=== PATIENT | male | born 1975 | race Caucasian/White ===

== ENCOUNTER → 2017-08-30 | Day surgery (SDC) | payer OTHER ==
--- NOTE | 2017-08-30 14:57 | RADIOLOGY REPORT (SQ) ---
EXAM DESCRIPTION: U/S BIOPSY THYROID COMPLETED DATE/TIME: 08/30/2017 2:07 pm REASON FOR STUDY: THYROID NODULE COMPARISON: None. TECHNIQUE: The procedure was discussed with the patient and written informed consent obtained. A ti meout was performed to confirm the procedure and patient's identity. The skin of the neck was preppe d and draped in sterile fashion and 1.5 mL of 1% lidocaine administered for local anesthesia. Under sonographic guidance, fine needle aspiration biopsy was performed of 4 x 2 cm mass in the lower righ t lobe of the thyroid. Four separate aspirations were performed. Hemostasis was obtained with direct manual compression. T here were no immediate complications. Specimens were evaluated at the time of acquisition by Maria Del Carmen from cytology. LIMITATIONS: None. FINDINGS: PATHOLOGY: Pending. IMPRESSION: ULTRASOUND-GUIDED BIOPSY PERFORMED OF A MASS IN THE RIGHT LOBE OF THE THYROID. PATHOLOG Y PENDING AT THE TIME OF DICTATION. COMMENT: Patient medication list reviewed: Yes- Quality ID# [id number]:Eligible professional attests to doc umenting in the medical record they obtained, updated, or reviewed the patient's current medications. TECHNICAL DOCUMENTATION: JOB ID: [id number] [employer]- All Rights Reserved Reading location - IP/workstation name: [email or web address]
== END ==
LOC: RAD 13:06
PROVIDERS: ATTEND Internal Medicine Pulmonary Disease
DX: E04.1 Nontoxic single thyroid nodule (principal)
CPT/HCPCS: 60100; 88173